=== PATIENT | male | born 1975 | race Two or more races ===

== ENCOUNTER 2022-01-30 19:36 | Emergency (ER) | payer MEDICAID ==
[~2022-01-30] VITALS: Ht 170.2 cm; Wt 93.0 kg
[2022-01-30] MEDS ORDERED: IBUPROFEN 600 MG TABLET PO ONE (22:00)
--- NOTE | 2022-01-30 22:00 | NUR ---
BIBS FOR HEMATURIA AND DYSURIA TODAY. WAS TREATED FOR UTI LAST MONTH. URINE SAMPLE OBTAINED AND SENT TO LAB
[2022-01-30] MEDS ORDERED: IBUPROFEN 600 MG TABLET ONE (22:03)
[2022-01-31 00:08] LABS: BILIRUBIN,URINE NEGATIVE (NEGATIVE); COLOR,URINE DARK YELLOW (YELLOW); LEUKOCYTE ESTERASE ,URINE 2+ (NEGATIVE); NITRITE, URINE NEGATIVE (NEGATIVE); PROTEIN,URINE 1+ mg/dl (NEGATIVE); UGLUCOSE NEGATIVE (NEGATIVE); UROBILINOGEN,URINE 0.2 EU/dL (0.2)
[2022-01-31 00:09] LABS: BACTERIA,URINE Moderate /HPF (None Seen); RBC,URINE 21-50 /HPF (0-2); SQUAMOUS EPITHELIAL CELL,UR Few /HPF (None Seen)
[2022-01-31] MEDS ORDERED: CEPH500T PO (00:17)
--- NOTE | 2022-01-31 00:25 | NUR ---
Patient discharged to home in stable condition. Written and verbal after care instructions given. Patient verbalizes understanding of instruction.
[2022-01-31 00:26] VITALS: BP 158/84
== END 2022-01-31 00:26 | disposition home or self-care (01) ==
LOC: ER 19:49
DX: N39.0 Urinary tract infection, site not specified (principal); Z79.899 Other long term (current) drug therapy
CPT/HCPCS: 81001; 87086-TC; 87186-TC; 87491; 87591